=== PATIENT | male | born 1990 | race Caucasian/White ===

== ENCOUNTER 2017-10-25 18:21 | Emergency (ER) | payer SELFPAY ==
--- NOTE | 2017-10-25 18:27 | ED Physician Documentation ---
General Adult - HISTORIAN Historian: patient - HPI Stated Complaint: drug abuse Chief Complaint: General Adult Timing: still present Further Comments: yes (Pt is a 27 yo male drug abuser, who says he uses methamphetamine, marijuana, and alcohol. He did use heroine in the past, but says he has not used this for 2 years. Pt is also a heavy smoker, smoking 2 or more packs/day. Pt denies wishing to harm himself or others, but says he did have a suicide attempt by hanging years ago. Pt has used alcohol, methamphetamine, and marijuana today. Pt states that he has been in drug rehab twice before, once as an outpatient, and once as an inpatient.) - ROS CONST: no problems EYES/ENT: none CVS/RESP: none GI/: none MS/SKIN/LYMPH: none NEURO/PSYCH: other (drug abuse) - PAST HX Past History: other (depression, drug abuse) - SOCIAL HX Smoking History: cigarettes (>2ppd) Alcohol Use: heavy Drug Use: marijuana, methamphetamines, other (previous heroine) - FAMILY HX Family History: No - REVIEWED ASSESSMENTS Nursing Assessment Reviewed: Yes Vitals Reviewed: Yes <Gentry Ramirez - Last Filed: 10/25/17 18:57> - VITAL SIGNS Vital Signs: Vital Signs Temp Pulse Resp BP Pulse Ox 98.4 F 112 H 15 140/86 97 10/25/17 18:58 10/25/17 18:58 10/25/17 18:58 10/25/17 18:58 10/25/17 18:58 <ROXIE APPIAH - Last Filed: 10/25/17 23:51> Progress - Progress Progress: 2350, family arranged transportation for patient to [facility]. <ROXIE APPIAH - Last Filed: 10/25/17 23:51> ED Results Lab/Radiology - Lab Results Lab Results: Lab Results 10/25/17 10/25/17 10/25/17 19:18 19:18 19:18 WBC 7.30 K/ul K/ul (4.00-12.00) RBC 5.03 M/ul M/ul (3.90-5.20) Hgb 15.4 g/dL g/dL (12.0-18.0) Hct 45.1 % % (37.0-53.0) MCV 89.7 fl fl (80.0-100.0) MCH 30.6 pg pg (28.0-34.0) MCHC 34.1 g/dL g/dL (30.0-36.0) RDW 13.8 % % (11.3-14.3) Plt Count 331 K/mm3 K/mm3 (130-400) Neut % (Auto) 60.4 % % (39.0-79.0) Lymph % (Auto) 30.6 % % (16.0-50.0) [place] % (Auto) 5.0 % % (0.0-11.0) Eos % (Auto) 1.5 % % (0.0-6.8) Baso % (Auto) 0.9 (0.0-1.5) Neut # (Auto) 4.4 # k/uL # k/uL (1.4-7.7) Lymph # (Auto) 2.2 # k/uL # k/uL (0.6-4.0) [place] # (Auto) 0.4 # k/uL # k/uL (0.0-0.9) Eos # (Auto) 0.1 # k/uL # k/uL (0.0-0.6) Baso # (Auto) 0.1 # k/uL # k/uL (0.0-0.5) Reactive Lymphs % 1.6 % % (0.0-5.0) Reactive Lymphs # 0.1 # k/uL # k/uL (0.0-0.8) Sodium 136 mmol/L mmol/L (136-145) Potassium 3.6 mmol/L mmol/L (3.5-5.1) Chloride 99 mmol/L mmol/L (98-107) Carbon Dioxide 29 mmol/L mmol/L (22-30) BUN 7 mg/dL L mg/dL (9-20) Creatinine 0.80 mg/dL mg/dL (0.66-1.25) Est GFR ( Amer) > 60 (60 - ) Est GFR (Non-Af Amer) > 60 (60 - ) Glucose 86 mg/dL mg/dL (74-106) Calcium 9.0 mg/dL mg/dL (8.4-10.2) Total Bilirubin 0.5 mg/dL mg/dL (0.2-1.3) AST 45 U/L U/L (15-46) ALT 67 U/L U/L (13-69) Alkaline Phosphatase 82 U/L U/L (38-126) Total Protein 7.8 g/dL g/dL (6.3-8.2) Albumin 4.3 g/dL g/dL (3.5-5.0) Ethyl Alcohol < 10.0 mg/dL mg/dL (0.0-10.0) - Orders Orders: ED Orders Category Date Time Status ALCOHOL MEDICAL USE ONLY Stat Lab 10/25/17 19:18 Completed CBC/PLATELET/DIFF Routine Lab 10/25/17 19:18 Completed CMP Routine Lab 10/25/17 19:18 Completed UDS [DRUG SCREEN URINE MEDICAL ONLY] Routine Lab 10/25/17 Ordered 0.9 % Sodium Chloride [Normal Saline] 1,000 ml Med 10/25/17 19:32 Discontinued IV Q1H LORazepam [Ativan] Med 10/25/17 21:57 Discontinued 1 mg PO .STK-MED ONE LORazepam [Ativan] Med 10/25/17 21:57 Discontinued 1 mg PO NOW ONE EKG WITH COMPARISON Stat Ther 10/25/17 Ordered <ROXIE APPIAH - Last Filed: 10/25/17 23:51> General Adult Physical Exam - PHYSICAL EXAM GENERAL APPEARANCE: mild distress EENT: pharynx normal NECK: normal inspection, supple RESPIRATORY: no resp distress, chest non-tender, breath sounds normal CVS: reg rate & rhythm, heart sounds normal ABDOMEN: soft, no organomegaly BACK: normal inspection, no CVA tenderness SKIN: warm/dry, normal color EXTREMITIES: non-tender, normal range of motion, no evidence of injury NEURO: motor nml, sensation nml, other (possible intoxication) <Gentry Ramirez - Last Filed: 10/25/17 18:57> Discharge <Gentry Ramirez - Last Filed: 10/25/17 18:57> Decision to Admit: NO Decision Time: 23:50 <ROXIE APPIAH - Last Filed: 10/25/17 23:51> Clincal Impression: Drug dependence Referrals: Primary Doctor,No [Primary Care Provider] - 2 Days Condition: Fair Disposition: 01 HOME, SELF-CARE
[2017-10-25 19:28] LABS: BASOPHILS % 0.9 (0.0-1.5); EOSINOPHILS % 1.5 % (0.0-6.8); MEAN CORPUSCULAR HEMOGLOBIN 30.6 pg (28.0-34.0); MEAN CORPUSCULAR VOLUME 89.7 fl (80.0-100.0); NEUTROPHILS # 4.4 # k/uL (1.4-7.7)
[2017-10-25] MEDS ORDERED: 0.9 % SODIUM CHLORIDE 1,000 ML IV ONE (19:32)
[2017-10-25 19:37] LABS: eGFR (African) > 60; eGFR (Non-African) > 60
[2017-10-25] MEDS ORDERED: LORazepam 1 MG TABLET PO ONE ×2 (21:57)
[2017-10-25 23:52] VITALS: BP 115/68
[2017-10-26 06:14] LABS: APPEARANCE,URINE CLEAR (CLEAR); COLOR,URINE YELLOW (YELLOW); OCCULT BLOOD,URINE TRACE-INTACT (NEGATIVE)
[2017-10-26 06:15] LABS: BARBITURATES NEGATIVE ng/mL (<200); UROBILINOGEN URINE 0.2 Eu (0.2-1.0)
[2017-10-26 06:16] LABS: AMPHETAMINE NON NEGATIVE ng/mL (<1000); CANNABINOIDS NON NEGATIVE ng/mL (<50); COCAINE NEGATIVE ng/mL (<300); METHAMPHETAMINE NON NEGATIVE ng/mL (<1000)
== END 2017-10-25 23:50 | disposition home or self-care (01) ==
LOC: ED 18:21
DX: F19.20 Other psychoactive substance dependence, uncomplicated (principal)
CPT/HCPCS: 80053; 80320; 80377; 81002; 85025; 93005; J7030; 96360; 99283; G0480; G0481; S1016